=== PATIENT | male | born 1995 | race Caucasian/White ===

== ENCOUNTER 2020-07-11 20:10 | Emergency (ER) | payer SELFPAY ==
[2020-07-11] MEDS ORDERED: Sodium Chloride 0.9% 10 ML Syringe FLUSH PRN (20:55)
[2020-07-11] MEDS ORDERED: Sodium Chloride 0.9% 1,000 ML IV ONE (20:55)
--- NOTE | 2020-07-11 20:56 | EDM.PDOC ---
ED HPI GENERAL MEDICAL PROBLEM - General Chief Complaint: General Stated Complaint: FEVERS, NAUSEA, CHILLS Time Seen by Provider: 07/11/20 20:54 Source of Information: Reports: Patient History Limitations: Reports: Language Barrier - History of Present Illness INITIAL COMMENTS - FREE TEXT/NARRATIVE: Gonzalez,25-year-old male, presents emergency department per pedis with abdomi nal discomfort. He is [place] with some language barrier although he does speak Persian quite well. Some terms do not translate as well and uses a branden on his phone for translation purposes. He states that pain developed periumbilical and has worsened since roughly 1100 hrs. today. He had nausea which has persisted intermittently with emesis of bile colored product. He is urinated 4 times roughly today and has had one normal bowel movement. He denies any intake of food or beverage that would cause stomach irritation. He has never had abdominal pain like this in the past. Along with the pain has had low-grade fever chills. 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 Onset: Today Duration: Hour(s): Location: Reports: Abdomen Middle Abdomen Pain Score (Numeric/FACES): 7 - Related Data Allergies Allergy/AdvReac Type Severity Reaction Status Date / Time No Known Allergies Allergy Verified 07/11/20 21:37 Past Medical History - Past Health History Medical/Surgical History: Denies Medical/Surgical History Social & Family History - Family History Family Medical History: No Pertinent Family History - Tobacco Use Tobacco Use Status *Q: Never Tobacco User Tobacco Use Within Last Twelve Months: No Used Tobacco, but Quit: No - Alcohol Use Alcohol Use History: No Alcohol Use in Last Twelve Months: No ED ROS GENERAL - Review of Systems Review Of Systems: See Below Constitutional: Reports: Fever, Chills, Decreased Appetite HEENT: Reports: No Symptoms, Other (loss of smell today in tractor) Respiratory: Reports: No Symptoms. Denies: Shortness of Breath, Cough Cardiovascular: Reports: No Symptoms. Denies: Chest Pain Endocrine: Reports: No Symptoms GI/Abdominal: Reports: Abdominal Pain. Denies: Bloody Stool, Constipation, Diarrhea : Reports: No Symptoms Musculoskeletal: Reports: No Symptoms Skin: Reports: No Symptoms Neurological: Reports: No Symptoms Psychiatric: Reports: No Symptoms Hematologic/Lymphatic: Reports: No Symptoms Immunologic: Reports: No Symptoms ED EXAM, GENERAL - Physical Exam Exam: See Below Free Text/Narrative:: Alert, oriented, in no significant distress. HEENT is negative discharge or deformity. Neck is soft supple with no lymphadenopathy. Thorax is clear with no wheezes nor crackles. Cardiac is regular I do not appreciate murmur. Abdomen is soft bowel sounds are present throughout. He describes periumbilical pain when questioned. No hepatosplenomegaly appreciated. Tenderness to the left lower quadrant with rebound tenderness as well as right lower quadrant tenderness with significant rebound tenderness. rectal deferred. There is no edema with mild varicosities to the lower extremities. Is able to move about with no restrictions. Course - Vital Signs Last Recorded V/S: Last Vital Signs Temp 97.4 F 07/11/20 20:51 Pulse 90 07/11/20 20:51 Resp 18 07/11/20 20:51 BP 136/82 07/11/20 20:51 Pulse Ox 97 07/11/20 20:51 - Orders/Labs/Meds Orders: Active Orders 24 hr Category Date Time Status Peripheral IV Care [RC] . DIRECTED Care 07/11/20 20:55 Active Abdomen Pelvis w Cont [CT] Stat Exams 07/11/20 21:02 Ordered Chest 1V Frontal [CR] Stat Exams 07/11/20 21:45 Ordered Sodium Chloride 0.9% [Normal Saline] 50 ml Med 07/11/20 21:45 Active IV ASDIRECTED Sodium Chloride 0.9% [Saline Flush] Med 07/11/20 20:55 Active 10 ml FLUSH Q8HR PRN Blood Culture x2 Reflex Set [OM.PC] Stat Oth 07/11/20 20:55 Ordered Peripheral IV Insertion Adult [OM.PC] Routine Oth 07/11/20 20:55 Ordered Medication Orders Sodium Chloride (Normal Saline) 50 mls @ 200 mls/hr IV ASDIRECTED YU Last Admin: 07/11/20 21:40 Dose: 200 mls/hr Documented by: VINCENT Sodium Chloride (Sodium Chloride 0.9% 10 Ml Syringe) 10 ml FLUSH Q8HR PRN PRN Reason: keep vein open Labs: Laboratory Tests 07/11/20 07/11/20 07/11/20 Range/Units 20:45 20:45 21:01 WBC 13.90 H (5.00-10.00) 10^3/uL RBC 5.18 (4.50-6.00) 10^6/uL Hgb 15.0 (13.0-17.0) g/dL Hct 44.3 (40.0-52.0) % MCV 85.5 (82.0-92.0) fL MCH 29.0 (27.0-31.0) pg MCHC 33.9 (32.0-36.0) g/dL RDW 12.6 (11.5-14.5) % Plt Count 217 (150-400) 10^3/uL MPV 10.4 (7.4-10.4) fL Immature Gran % (Auto) 0.2 (0.0-5.0) % Neut % (Auto) 87.5 H (50.0-70.0) % Lymph % (Auto) 6.5 L (20.0-40.0) % Storey % (Auto) 5.6 (2.0-8.0) % Eos % (Auto) 0.1 L (1.0-3.0) % Baso % (Auto) 0.1 (0.0-1.0) % Neut # (Auto) 12.16 H (2.50-7.00) 10^3/uL Lymph # (Auto) 0.91 L (1.00-4.00) 10^3/uL Storey # (Auto) 0.78 (0.10-0.80) 10^3/uL Eos # (Auto) 0.01 L (0.10-0.30) 10^3/uL Baso # (Auto) 0.01 (0.00-0.10) 10^3/uL Immature Gran # (Auto) 0.03 (0.00-0.50) 10^3/uL Sodium 140 (136-145) mmol/L Potassium 4.1 (3.5-5.1) mmol/L Chloride 102 (98-107) mmol/L Carbon Dioxide 26.5 (21.0-32.0) mmol/L Anion Gap 15.6 H (5-15) mmol/L BUN 18 (7-18) mg/dL Creatinine 0.99 (0.51-1.17) mg/dL Est Cr Clr Drug Dosing 169.73 mL/min Estimated GFR (MDRD) > 60 mL/min Glucose 106 (70-140) mg/dL Calcium 9.2 (8.7-10.3) mg/dL Total Bilirubin 1.5 H (0.2-1.0) mg/dL AST 14 L (15-37) U/L ALT 27 (14-63) U/L Alkaline Phosphatase 71 (46-116) U/L Total Protein 7.8 (6.4-8.2) g/dL Albumin 4.70 (3.40-5.00) g/dL Amylase 36 (25-125) U/L Lipase 88 (73-393) U/L Specimen Type Urincc Urine Color Yellow (YELLOW) Urine Appearance Clear (CLEAR) Urine pH 5.5 (5.0-9.0) Ur Specific [place] >= 1.030 (1.005-1.030) Urine Protein Negative (NEGATIVE) mg/dL Urine Glucose (UA) Negative (NEGATIVE) mg/dL Urine Ketones >=160 H (NEGATIVE) mg/dL Urine Occult Blood Trace-intact H (NEGATIVE) Urine Nitrite Negative (NEGATIVE) Urine Bilirubin Negative (NEGATIVE) Urine Urobilinogen 0.2 (0.2-1.0) E.U./dL Ur Leukocyte Esterase Negative (NEGATIVE) Urine RBC 0-5 (0-5) /HPF Urine WBC Not seen (0-5) /HPF Ur Epithelial Cells Rare /LPF Urine Bacteria Not seen (NONE TO FEW) /HPF Urine Mucus Rare H (NEGATIVE) /LPF Meds: Medications Generic Name Dose Route Start Last Admin Trade Name Freq PRN Reason Stop Dose Admin Sodium Chloride 50 mls @ 200 mls/hr 07/11/20 21:45 07/11/20 21:40 Normal Saline IV 200 mls/hr ASDIRECTED YU Administration Sodium Chloride 10 ml 07/11/20 20:55 Sodium Chloride 0.9% 10 Ml Syringe FLUSH Q8HR PRN keep vein open Discontinued Medications Generic Name Dose Route Start Last Admin Trade Name Freq PRN Reason Stop Dose Admin Sodium Chloride 1,000 mls @ 999 mls/hr 07/11/20 20:55 07/11/20 21:32 Normal Saline IV 07/11/20 21:55 999 mls/hr .BOLUS ONE Administration Iopamidol 100 ml 07/11/20 21:37 07/11/20 21:40 Iopamidol 755 Mg/Ml 100 Ml Bottle IV 07/11/20 21:38 100 ml ONETIME ONE Administration Ondansetron HCl 8 mg 07/11/20 21:02 07/11/20 21:15 Ondansetron 4 Mg/2 Ml Sdv IVPUSH 07/11/20 21:03 8 mg ONETIME ONE Administration - Radiology Interpretation Free Text/Narrative:: positive appendicitis CT Results Date: 07/11/20 CT Results Time: 22:07 - Re-Assessments/Exams Free Text/Narrative Re-Assessment/Exam: 07/11/20 23:13 dr Navarrete accepted for direct admission Departure - Departure Time of Disposition: 23:15 Disposition: DC/Tfer to [facility] 02 Condition: Good Clinical Impression: Acute appendicitis - Discharge Information *PRESCRIPTION DRUG MONITORING PROGRAM REVIEWED*: Not Applicable *COPY OF PRESCRIPTION DRUG MONITORING REPORT IN PATIENT CHRISTI: Not Applicable Referrals: Ana Paula Kurtz MD [Primary Care Provider] - Forms: ED Department Discharge, Interfacility Transfer EMTALA Additional Instructions: [facility] excepting at 2309 per private vehicle for direct admission. Dr Navarrete. Nothing to eat or drink. Go straight to the hospital for direct admission. Sepsis Event Note (ED) - Focused Exam Vital Signs: Vital Signs Temp Pulse Resp BP Pulse Ox 07/11/20 20:51 97.4 F 90 18 136/82 97 - Problem List & Annotations (1) Abdominal pain SNOMED Code(s): 54830689 Code(s): R10.9 - UNSPECIFIED ABDOMINAL PAIN Status: Acute Priority: High Current Visit: Yes Qualifiers: Abdominal location: periumbilical Qualified Code(s): R10.33 - Periumbilical pain (2) Abdominal rebound tenderness of right lower quadrant SNOMED Code(s): 59273011 Code(s): R10.823 - RIGHT LOWER QUADRANT REBOUND ABDOMINAL TENDERNESS Status: Acute Priority: High Current Visit: Yes (3) Nausea & vomiting SNOMED Code(s): 63719151 Code(s): R11.2 - NAUSEA WITH VOMITING, UNSPECIFIED Status: Acute Priority: High Current Visit: Yes Qualifiers: Vomiting type: bilious vomiting Qualified Code(s): R11.14 - Bilious vomiting (4) Acute appendicitis SNOMED Code(s): 46035657 Code(s): K35.80 - UNSPECIFIED ACUTE APPENDICITIS Status: Acute Priority: High Current Visit: Yes Qualifiers: Acute appendicitis type: unspecified acute appendicitis type Qualified Code(s): K35.80 - Unspecified acute appendicitis - Problem List Review Problem List Initiated/Reviewed/Updated: Yes - My Orders Last 24 Hours: My Active Orders 07/11/20 20:55 Peripheral IV Care [RC] . DIRECTED Sodium Chloride 0.9% [Saline Flush] 10 ml FLUSH Q8HR PRN Blood Culture x2 Reflex Set [OM.PC] Stat Peripheral IV Insertion Adult [OM.PC] Routine 07/11/20 21:02 Abdomen Pelvis w Cont [CT] Stat 07/11/20 21:45 Chest 1V Frontal [CR] Stat Sodium Chloride 0.9% [Normal Saline] 50 ml IV ASDIRECTED - Assessment/Plan Last 24 Hours: My Active Orders 07/11/20 20:55 Peripheral IV Care [RC] . DIRECTED Sodium Chloride 0.9% [Saline Flush] 10 ml FLUSH Q8HR PRN Blood Culture x2 Reflex Set [OM.PC] Stat Peripheral IV Insertion Adult [OM.PC] Routine 07/11/20 21:02 Abdomen Pelvis w Cont [CT] Stat 07/11/20 21:45 Chest 1V Frontal [CR] Stat Sodium Chloride 0.9% [Normal Saline] 50 ml IV ASDIRECTED Assessment:: [facility] excepting at 2309 per private vehicle for direct admission. Dr Navarrete. Plan: [facility] excepting at 2309 per private vehicle for direct admission. Dr Navarrete. Nothing to eat or drink. Go straight to the hospital for direct admission.
[2020-07-11] MEDS ORDERED: Ondansetron 4 MG/2 ML SDV IVPUSH ONE (21:02)
[2020-07-11] MEDS ORDERED: Iopamidol 755 Mg/ML 100 ML Bottle IV ONE (21:37)
[2020-07-11] MEDS ORDERED: Sodium Chloride 0.9% 50 ML IV SCH (21:45)
[2020-07-11 22:01] LABS: ANION GAP 15.6 mmol/L (5-15); CHLORIDE,CL 102 mmol/L (98-107); SODIUM,NA 140 mmol/L (136-145)
--- NOTE | 2020-07-12 08:18 | CT ---
[id number] CT/CT Abdomen Pelvis W IV EXAM: ABDOMEN AND PELVIS CT WITH CONTRAST INDICATION: Abdominal pain, rebound tenderness and concern for appendicitis. COMPARISON: None. DISCUSSION: Respiratory motion somewhat limits assessment of the lower chest and upper abdomen. The appendix is mildly dilated at 10 mm and has early mural thickening. In the context of right lower quadrant pain in the appropriate clinical exam to suggest acute appendicitis. There are no significant surrounding inflammatory changes. No abscess, free air free fluid. The liver, gallbladder, spleen, pancreas, adrenal glands, kidneys, small bowel, and the remaining large bowel are unremarkable. The osseous structures are unremarkable. IMPRESSION: 1. The appendix is dilated suggesting early appendicitis. No evident complication. Carlitos Villa MD 07/12/20 0817 Thank you for allowing us to participate in the care of your patient.
--- NOTE | 2020-07-12 08:19 | CR ---
[id number] RAD/RAD Chest PA or AP 1V EXAM: FRONTAL CHEST INDICATION: Abdominal pain. COMPARISON: None. DISCUSSION: The heart and lungs are normal in appearance. IMPRESSION: 1. Negative exam. Carlitos Villa MD 07/12/20 0818 Thank you for allowing us to participate in the care of your patient.
== END 2020-07-11 23:38 ==
LOC: KA.ED 20:10
DX: K35.80 Unspecified acute appendicitis (principal)
CPT/HCPCS: 71045; 74177; 80053; 81001; 82150; 83690; 85025; 96374; 99285; J2405; J7030; Q9967; 99284